=== PATIENT | male | born 1975 | race African-American/Black ===

== ENCOUNTER 2018-11-06 11:03 | Emergency (ER) | payer OTHER ==
[2018-11-06 11:13] VITALS: BP 156/98; PULSE 70; TEMP 98.5; BMI 31.6
--- NOTE | 2018-11-06 12:28 | PDOC ---
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) Past History - Past Medical History Allergies/Adverse Reactions: Allergies Allergy/AdvReac Type Severity Reaction Status Date / Time No Known Allergies Allergy Verified 11/06/18 11:07 Home Medications: Ambulatory Orders No Home Medications 0 dose .ROUTE UTDICT 03/17/12 - Suicide/Smoking/Psychosocial Hx Smoking Status: No Smoking History: Never smoked Number of Cigarettes Smoked Daily: 0 Information on smoking cessation initiated: No Hx Alcohol Use: No Drug/Substance Use Hx: No *Physical Exam - Vital Signs Last Vital Signs Temp Pulse Resp BP Pulse Ox 98.5 F 70 17 156/98 98 11/06/18 11:08 11/06/18 11:08 11/06/18 11:08 11/06/18 11:08 11/06/18 11:08 - Physical Exam General Appearance: No: Apparent Distress Respiratory/Chest: positive: Lungs Clear, Normal Breath Sounds. negative: Respiratory Distress Cardiovascular: positive: Regular Rhythm, Regular Rate, S1, S2. negative: Murmur Musculoskeletal: negative: CVA Tenderness, Decreased Range of Motion, Muscle Spasm, Vertebral Tenderness Extremity: negative: Pedal Edema, Swelling, Calf Tenderness Integumentary: positive: Normal Color Neurologic: positive: imagery analyst II-XII NML intact, Fully Oriented, Alert, Normal Mood/ Affect, Motor Strength 5/5, Other (able to ambulate, normal gait) Medical Decision Making - Medical Decision Making 43 y/o M hx of HTN, DM presents with chronic lower back pain for >2 months and feeling tightness around knees and feet when he ambulates x 3 weeks (denies back pain with ambulation). States he went to [facility] 3 days ago and then had xrays done of his knees 2 days ago, but has not yet gotten results. Patient is also going to be seeing his PCP today. Has been using Tylenol along with another med (Unable to recall name) but meds have not helped. Denies fever, sob , cp, abd pain, n/v, urinary complaints, numbness/tingling, bowel/bladder incontinence, saddle/groin paresthesia PE not concerning for cauda equina Normal gait noted Advised further eval with his PCP today 11/06/18 12:24 *DC/Admit/Observation/Transfer Diagnosis at time of Disposition: Back pain Qualifiers: Back pain location: low back pain Chronicity: chronic Back pain laterality: unspecified Sciatica presence: without sciatica Qualified Code(s): M54.5 - Low back pain; G89.29 - Other chronic pain Knee pain, bilateral Qualifiers: Chronicity: chronic Qualified Code(s): M25.561 - Pain in right knee; M25.562 - Pain in left knee; G89.29 - Other chronic pain - Discharge Dispostion Disposition: HOME Condition at time of disposition: Stable Decision to Admit order: No - Referrals - Patient Instructions Printed Discharge Instructions: DI for Low Back Pain, DI for Knee Pain - Post Discharge Activity
== END 2018-11-06 12:40 | disposition home or self-care (01) ==
LOC: JERFT 11:03
DX: M54.5 Low back pain (principal); G89.29 Other chronic pain; M25.562 Pain in left knee; M25.561 Pain in right knee; E11.9 Type 2 diabetes mellitus without complications; I10 Essential (primary) hypertension
CPT/HCPCS: 99281-25

== ENCOUNTER 2018-11-15 14:11 | Inpatient (IN) | payer OTHER | END 2018-11-21 17:34 | disposition home or self-care (01) | LOC: JER 14:11 → JERBED 18:09 → J5S 20:15 ==

== ENCOUNTER 2023-07-21 10:11 | Emergency (ER) | payer OTHER ==
[2023-07-21 10:42] VITALS: BP 170/109; PULSE 77; RESP 18; TEMP 98.1; BMI 23.1
[2023-07-21] MEDS ORDERED: amLODIPine BESYLATE 10 MG TABLET (FP) PO ONE (11:46)
[2023-07-21] MEDS ORDERED: HYDROCHLOROTHIAZIDE 25 MG TABLET (FP) PO ONE (11:46)
[2023-07-21] MEDS ORDERED: amLODIPine BESYLATE 10 MG TABLET (FP) ONE (11:51)
[2023-07-21] MEDS ORDERED: HYDROCHLOROTHIAZIDE 25 MG TABLET (FP) ONE (11:51)
== END 2023-07-21 12:15 | disposition home or self-care (01) ==
LOC: JER 10:11 → JERFT 10:11 → JER 12:15
DX: M54.2 Cervicalgia (principal); M25.511 Pain in right shoulder; I10 Essential (primary) hypertension; Z98.2 Presence of cerebrospinal fluid drainage device
CPT/HCPCS: 99283-25

== ENCOUNTER 2024-03-08 09:51 | Inpatient (IN) | payer OTHER ==
[2024-03-08 11:42] LABS: VENOUS BASE EXCESS 1.2 mmol/L (-2-2); VENOUS PCO2 42.9 mmHg (38-52); VENOUS PH 7.404 (7.310-7.410)
[2024-03-08 11:43] LABS: BASO % 1.4 % (0-2.0); EOS % 1.7 % (0-4.5); HEMATOCRIT 42.4 % (35.4-49); LYMPH % 22.1 % (8-40); MCH 26.5 pg (25.7-33.7); MCHC 32.9 g/dl (32.0-35.9); MEAN CELL VOLUME 80.4 fl (80-96); MEAN PLT VOLUME 9.1 fl (7.5-11.1); MONO % 7.3 % (3.8-10.2); NEUT % 67.5 % (42.8-82.8); PLATELET COUNT 245 10^3/uL (134-434); RBC 5.28 M/mm3 (4.00-5.60); RDW 14.5 % (11.9-15.9); WHITE BLOOD COUNT 7.4 K/mm3 (4.0-10.0)
[2024-03-08 11:46] LABS: EPI CELLS 1 /uL (0-25.1); HYALINE CASTS 0 /uL (0-3.1); PH,URINE 5.5 (5.0-8.0); URINE APPEARANCE CLEAR; URINE BACTERIA 3 /uL (0-1359); URINE BILIRUBIN NEGATIVE (NEGATIVE); URINE COLOR YELLOW; URINE GLUCOSE (UA) 3+ (NEGATIVE); URINE KETONE NEGATIVE (NEGATIVE); URINE LEUK ESTERASE NEGATIVE (NEGATIVE); URINE NITRITE NEGATIVE (NEGATIVE); URINE PROTEIN TRACE (NEGATIVE); URINE RBC 10 /uL (0-23.9); URINE UROBILINOGEN 0.2 mg/dL (0.2-1.0); URINE WBC 5 /uL (0-25.8)
[2024-03-08 12:01] LABS: POTASSIUM 3.1 mmol/L (3.5-5.1)
[2024-03-08 12:03] LABS: CALCIUM 10.4 mg/dL (8.5-10.1)
[2024-03-08 12:04] LABS: BLOOD UREA NITROGEN 11.2 mg/dL (7-18)
[2024-03-08 12:06] LABS: ACTIVATED PTT 30.6 SECONDS (25.2-36.5); CREATININE 1.7 mg/dL (0.55-1.3); INR 0.91 (0.83-1.09); PROTHROMBIN TIME (PATIENT) 10.5 SEC (9.7-13.0)
[2024-03-08 12:07] LABS: BILIRUBIN,TOTAL 0.8 mg/dL (0.2-1)
[2024-03-08 12:08] LABS: TOT PROT 8.2 g/dl (6.4-8.2)
[2024-03-08 12:11] LABS: N-TERMINAL BNP 238.3 pg/ml (5-125)
[2024-03-08] MEDS: LACTATED RINGERS SOLUTION 1000 ML INFUS.BAG IV ONE ×3 (12:16→14:16)
[2024-03-08 15:08] LABS: HIV INTERPRETATION NEGATIVE (NEGATIVE)
[2024-03-08] MEDS ORDERED: ACETAMINOPHEN 325 MG TABLET (FP) PO PRN (17:11)
[2024-03-08] MEDS ORDERED: CARVEDILOL 25 MG TABLET (FP) ONE (19:30)
[2024-03-08] MEDS: CARVEDILOL 25 MG TABLET (FP) PO SCH (19:33)
[2024-03-08] MEDS: POTASSIUM CHLORIDE 10 MEQ in SODIUM CHLORIDE 1,000 ML IV SCH (19:42)
[2024-03-08 19:59] LABS: LACTIC ACID 2.4 mmol/L (0.4-2.0)
[2024-03-08] MEDS: INSULIN ASPART SLIDING SCALE (NOVOLOG) 1 VIAL SQ SCH (22:02)
[2024-03-08] MEDS: HEPARIN NA (PORCINE) 5,000 UNITS/ML 1ML VIAL SQ SCH (22:03)
[2024-03-09] MEDS: sitaGLIPtin PHOSPHATE 50 MG TABLET PO SCH (06:37)
[2024-03-09] MEDS: GLIMEPIRIDE 2 MG TABLET PO SCH (06:48)
[2024-03-09 09:38] LABS: HEMATOCRIT 39.4 % (35.4-49); HEMOGLOBIN 13.2 GM/dL (11.7-16.9); MCH 26.6 pg (25.7-33.7); MCHC 33.5 g/dl (32.0-35.9); MEAN CELL VOLUME 79.4 fl (80-96); MEAN PLT VOLUME 8.9 fl (7.5-11.1); PLATELET COUNT 240 10^3/uL (134-434); RBC 4.96 M/mm3 (4.00-5.60); RDW 14.9 % (11.9-15.9); WHITE BLOOD COUNT 6.4 K/mm3 (4.0-10.0)
[2024-03-09 10:12] LABS: POTASSIUM 3.2 mmol/L (3.5-5.1)
[2024-03-09] MEDS: amLODIPine BESYLATE 5 MG TABLET (FP) PO SCH (10:12)
[2024-03-09] MEDS: LOSARTAN POTASSIUM 50 MG TABLET PO SCH (10:13)
[2024-03-09 10:21] LABS: CALCIUM 9.9 mg/dL (8.5-10.1)
[2024-03-09 10:22] LABS: ALBUMIN 3.6 g/dl (3.4-5.0); BLOOD UREA NITROGEN 16.2 mg/dL (7-18)
[2024-03-09 10:25] LABS: CREATININE 1.5 mg/dL (0.55-1.3)
[2024-03-09 10:26] LABS: BILIRUBIN,TOTAL 0.8 mg/dL (0.2-1); TOT PROT 7.1 g/dl (6.4-8.2)
[2024-03-09 14:41] VITALS: BMI 31.4
[2024-03-09] MEDS: POTASSIUM CHLORIDE ORAL LIQUID 20 MEQ/15 ML PO ONE (15:26)
[2024-03-09] MEDS: hydrALAZINE HCL 10 MG TABLET PO STA (15:27)
[2024-03-09] MEDS: KCL 10 MEQ IVPB 10 MEQ/100 ML INFUS.BAG IVPB SCH (15:27)
[2024-03-10] MEDS: hydrALAZINE HCL 10 MG TABLET PO ONE (06:37)
[2024-03-10 10:21] LABS: HEMATOCRIT 39.5 % (35.4-49); HEMOGLOBIN 13.1 GM/dL (11.7-16.9); MCH 26.7 pg (25.7-33.7); MCHC 33.3 g/dl (32.0-35.9); MEAN PLT VOLUME 8.9 fl (7.5-11.1); PLATELET COUNT 232 10^3/uL (134-434); RBC 4.93 M/mm3 (4.00-5.60); RDW 14.9 % (11.9-15.9); WHITE BLOOD COUNT 5.3 K/mm3 (4.0-10.0)
[2024-03-10 11:09] LABS: POTASSIUM 3.7 mmol/L (3.5-5.1)
[2024-03-10 11:14] LABS: ALBUMIN 3.4 g/dl (3.4-5.0); CALCIUM 9.6 mg/dL (8.5-10.1)
[2024-03-10 11:17] LABS: CREATININE 1.3 mg/dL (0.55-1.3)
[2024-03-10 11:18] LABS: BILIRUBIN,TOTAL 0.6 mg/dL (0.2-1); TOT PROT 6.7 g/dl (6.4-8.2)
[2024-03-11] MEDS: DEXAMETHASONE SOD PHOSPHATE 4 MG/1 ML VIAL IVPB SCH (05:04)
[2024-03-11] MEDS: hydrALAZINE HCL 25 MG TABLET (FP) PO ONE (18:59)
[2024-03-12 10:27] VITALS: BP 164/102; PULSE 70; RESP 18; TEMP 98.6
[2024-03-12] MEDS: amLODIPine BESYLATE 5 MG TABLET (FP) PO ONE (10:33)
== END 2024-03-12 11:48 | disposition short-term general hospital (02) | DRG 58 ==
LOC: JER 09:51 → JERBED 14:59 → J5S 21:43 → OBSVTOIN 03-11 10:48 → J6W 03-12 10:28
PROVIDERS: ADMIT Family Medicine; ATTEND Family Medicine
DX: G93.89 Other specified disorders of brain (principal); E11.40 Type 2 diabetes mellitus with diabetic neuropathy, unspecified; E11.65 Type 2 diabetes mellitus with hyperglycemia; E11.22 Type 2 diabetes mellitus with diabetic chronic kidney disease; G91.2 (Idiopathic) normal pressure hydrocephalus; I12.9 Hypertensive chronic kidney disease with stage 1 through stage 4 chronic kidney disease, or unspecified chronic kidney disease; N18.9 Chronic kidney disease, unspecified; Z79.84 Long term (current) use of oral hypoglycemic drugs; E87.6 Hypokalemia; E78.5 Hyperlipidemia, unspecified; Z98.2 Presence of cerebrospinal fluid drainage device
CPT/HCPCS: 0241U-QW; 36415; 70450-TC; 70496-TC; 70498-TC; 70553-TC; 71045-TC-FY; 80053; 81003; 82010; 82803; 82962; 83036; 83540; 83605; 83690; 83735; 83880; 84439; 84443; 84484; 85025; 85027; 85610; 85730; 86803; 86850; 86900; 86901; 87389; 93005; 93010; 97116-GP; 97161-GP; 99285-25; G0378; J1644